=== PATIENT | male | born 1990 | race Caucasian/White ===

== ENCOUNTER 2016-07-03 09:56 | Emergency (ER) | payer OTHER ==
[2016-07-03 10:42] VITALS: BP 128/69
--- NOTE | 2016-07-03 11:31 | UC ---
Throat Pain/Nasal Priyank HPI - HPI Summary HPI Summary: complaint of sore throat that started yesterday slight nasal congestion headache last night denies fever and cough took some ibuprofen this morning with relief of sore throat hasn't needed his albuterol inhaler coworkers with strep throat - History of Current Complaint Chief Complaint: UCRespiratory Stated Complaint: SORE THROAT Time Seen by Provider: 07/03/16 11:25 Hx Obtained From: Patient - Allergies/Home Medications Allergies/Adverse Reactions: Allergies Allergy/AdvReac Type Severity Reaction Status Date / Time Penicillins Allergy Unknown Unknown Unverified 03/30/15 08:45 Reaction Details PMH/Surg Hx/FS Hx/Imm Hx Previously Healthy: Yes Endocrine History Of: Denies: Diabetes, Thyroid Disease, Hyperthyroidism, Hypothyroidism, Dyslipidemia Cardiovascular History Of: Denies: Cardiac Disorders, Hypertension, Pacemaker/ICD, Myocardial Infarction , Congestive Heart Failure, Atrial Fibrillation, Deep Vein Thrombosis, Bleeding Disorders Respiratory History Of: Reports: Asthma - mild GI/ History Of: Reports: Kidney Stones - He had this 2-3 years ago. He had it passed. Saw urologist. Denies: Gastroesophageal Reflux, Ulcer, Renal Disease Neurological History Of: Reports: Seizures Denies: TIA, CVA, Dementia, Migraine Psychological History Of: Denies: Anxiety, Depression, Bipolar Disorder, Schizophrenia, Post Traumatic Stress Disorder Cancer History Of: Denies: Lung Cancer, Colorectal Cancer, Breast Cancer, Prostate Cancer, Cervical Cancer - Surgical History Surgical History: None - Family History Known Family History: Negative: Cardiac Disease, Hypertension, Diabetes - Social History Occupation: Employed Full-time Lives: With Family Alcohol Use: None Substance Use Type: None Smoking Status (MU): Never Smoked Tobacco Review of Systems Constitutional: Negative Skin: Negative Eyes: Negative ENT: Sore Throat, Nasal Discharge Respiratory: Negative Cardiovascular: Negative Gastrointestinal: Negative Genitourinary: Negative Motor: Negative Neurovascular: Negative Musculoskeletal: Negative Neurological: Negative Psychological: Negative All Other Systems Reviewed And Are Negative: Yes Physical Exam Triage Information Reviewed: Yes Appearance: No Pain Distress, Well-Nourished Vital Signs: Initial Vital Signs Temp 99.1 F 07/03/16 10:39 Pulse 86 07/03/16 10:39 Resp 18 07/03/16 10:39 BP 128/69 07/03/16 10:39 Pulse Ox 100 07/03/16 10:39 Vital Signs Reviewed: Yes Eyes: Positive: Conjunctiva Clear ENT: Positive: Pharyngeal erythema, Nasal congestion, Nasal drainage, TMs normal , Tonsillar swelling, Tonsillar exudate Neck: Positive: No Lymphadenopathy Respiratory: Positive: Lungs clear, Normal breath sounds, No respiratory distress, No accessory muscle use Cardiovascular: Positive: RRR Abdomen Description: Positive: Nontender, Soft Bowel Sounds: Positive: Present Musculoskeletal Exam: Normal Neurological: Positive: Alert Psychological Exam: Normal Skin Exam: Normal Throat Pain/Nasal Course/Dx - Differential Dx/Diagnosis Differential Diagnosis/HQI/PQRI: Pharyngitis, Tonsillitis Provider Diagnoses: pharyngitis-viral Discharge - Discharge Plan Condition: Stable Disposition: HOME Patient Education Materials: Pharyngitis (ED) Referrals: Kashmir Hartmann MD [Primary Care Provider] - Additional Instructions: PHARYNGITIS (Sore Throat) What is Pharyngitis? The medical name for a sore throat is Pharyngitis. It is caused by an infection or irritation of your throat or tonsils. The infection can be caused by a virus or by bacteria. Not everyone with Pharyngitis needs antibiotics. Antibiotics will not make viral infections better, and they will not help a sore throat caused by irritation. Symptoms May Include: Sore throat Swelling of the glands in the neck Trouble or pain with swallowing Fever Headache Cough Extreme tiredness Ear pain Treatment Recommendations: Gargle every few hours with a solution of 1/4 teaspoon of salt dissolved in 1/ 2 cup of warm water. Drink plenty of warm beverages, like tea with lemon, (with or without honey) and soup. You may eat and drink cold foods and liquids like frozen yogurt, popsicles, and ice water if that makes your throat feel better. The goal is to keep you well hydrated. Use a "cool-mist" vaporizer or humidifier in the room where you spend most of your time. If you get a sore throat often, consider adding an electronic air filter and humidifier to your furnace system. Don't smoke. Do not eat spicy foods. Take medicine exactly as prescribed. If you do not think it is helping, call your healthcare provider. Do not increase how much or how often you take it without getting their OK first. Non-prescription anti-inflammatory medicine like ibuprofen (Motrin, Advil) or naproxen (Aleve) may help lessen the pain. You should not take these medicines if you have had bleeding in your stomach in the past. Acetaminophen ( Tylenol) is another choice of medicine that may help the pain. If pain medicine that makes you tired or sleepy or contains narcotics is prescribed, you should not drink, drive, or participate in any other activities that you need to be clear-headed for. Please keep all medicines out of the reach of children. Do not get in close contact with anyone you know who has a sore throat. Use throat lozenges (Cepostat, [place], etc.) or suck on hard candy for temporary relief of the pain with swallowing. (Do not give to children under age 5.) Call Your Doctor or Return Here IF: Your symptoms do not start to get better within 2 days or you become worse. You have a fever over 101.0 F orally. You cant swallow liquids or saliva. You are drooling. You start to have trouble breathing. You start to have a rash. You start to have a stiff neck. You start to have pain in your chest. You start to have any symptoms that are new or worry you.
== END 2016-07-03 12:02 | disposition home or self-care (01) ==
LOC: UCEAST 09:56
DX: J02.9 Acute pharyngitis, unspecified (principal); R56.9 Unspecified convulsions; Z88.0 Allergy status to penicillin; Z87.442 Personal history of urinary calculi
CPT/HCPCS: 87651; 99211; G0463